=== PATIENT | male | born 1985 | race African-American/Black ===

== ENCOUNTER 2025-02-25 23:51 | Inpatient (IN) | payer MEDICAID ==
[~2025-02-25] VITALS: Ht 175.3 cm; Wt 74.8 kg
[2025-02-25 23:56] VITALS: O2SAT 100
[2025-02-26] MEDS: HYDROCODONE/ACETAMINOPHEN 5/325MG TABLET PO ONE (01:45)
[2025-02-26 04:04] LABS: HEMATOCRIT. 42.6 % (42.0-52.0); HEMOGLOBIN. 14.2 g/dL (14.0-18.0); MEAN PLATELET VOLUME 7.9 fl (7.4-10.4); PLATELET 207 x1000/uL (130-400); RED BLOOD CELL COUNT 4.49 mill/uL (4.7-6.1); RED CELL DISTRIBUTION WIDTH 13.1 % (11.6-14.6)
[2025-02-26] MEDS: ONDANSETRON HCL 4MG/2ML INJ IV ONE (04:07)
[2025-02-26] MEDS: MORPHINE SULFATE 4 MG/ML INJ (FOR IV/IM USE) IV ONE (04:08)
[2025-02-26 04:22] LABS: CREATININE 1.1 mg/dL (0.6-1.3); UREA NITROGEN BLOOD 10 mg/dL (9-23)
[2025-02-26 04:24] LABS: ASPARTATE AMINOTRANSFERASE 23 IU/L (<34); BILIRUBIN DIRECT 0.1 mg/dL (<=3.0); BILIRUBIN TOTAL 0.4 mg/dL (0.1-1.0)
[2025-02-26 04:25] LABS: PROTEIN TOTAL 6.6 g/dL (6.0-8.3)
[2025-02-26 05:06] LABS: EOSINOPHILS % MANUAL 1.0 % (0.0-5.0); LYMPHOCYTES % MANUAL 2.0 % (20.0-50.0); MONOCYTES % MANUAL 1.0 % (2.0-8.0); NEUTROPHILS % MANUAL 96.0 % (45.0-75.0)
[2025-02-26 05:07] LABS: PLATELET ESTIMATE NORMAL
[2025-02-26 05:37] LABS: INR 1.0
[2025-02-26] MEDS ORDERED: ONDANSETRON HCL 4MG/2ML INJ IV PRN ×3 (06:00→13:00)
[2025-02-26] MEDS ORDERED: DEXTROSE 50% WATER 50ML SYRINGE IV PRN (06:00)
[2025-02-26] MEDS ORDERED: HYDROCODONE/ACETAMINOPHEN 5/325MG TABLET PO PRN (06:00)
[2025-02-26] MEDS ORDERED: ACETAMINOPHEN 325MG TABLET PO PRN ×2 (06:00)
[2025-02-26] MEDS ORDERED: CLONIDINE 0.1MG TABLET PO PRN (06:00)
[2025-02-26] MEDS ORDERED: IPRATROPIUM/ALBUTEROL 0.5-3(2.5)MG/3ML NEB HHN PRN (06:00)
[2025-02-26] MEDS ORDERED: NALOXONE HCL 0.4MG/ML VIAL IV PRN (06:00)
[2025-02-26] MEDS ORDERED: TRAMADOL 50MG TABLET PO PRN (06:00)
[2025-02-26 08:00] VITALS: BP 101/69; PULSE 57; RESP 16; TEMP 37.3; O2SAT 100
[2025-02-26] MEDS: FAMOTIDINE 20MG/2ML VIAL IV SCH (09:51)
[2025-02-26 10:00] VITALS: BP 102/54; PULSE 60; RESP 14; TEMP 36.8072
[2025-02-26] MEDS ORDERED: VANCOMYCIN HCL 1GM VIAL ONE (11:35)
[2025-02-26] MEDS ORDERED: LIDOCAINE HCL/EPINEPHRINE 1%-EPI 1:100,000 20ML VIAL ONE (11:35)
[2025-02-26] MEDS ORDERED: FAMOTIDINE 20MG/2ML VIAL IV ONE (11:51)
[2025-02-26] MEDS ORDERED: HYDROMORPHONE HCL/PF 2MG/ML INJ IV PRN (12:00)
[2025-02-26] MEDS: BLOOD SUGAR DIAGNOSTIC STRIP TEST SCH (12:00)
[2025-02-26] MEDS ORDERED: HYDROMORPHONE HCL/PF 1MG/ML INJ IV PRN (13:00)
[2025-02-26] MEDS ORDERED: MEPERIDINE HCL/PF 25MG/ML CPJ IV PRN (13:00)
[2025-02-26] MEDS ORDERED: HYDRALAZINE 20MG/ML VIAL IV PRN ×2 (13:00)
[2025-02-26] MEDS ORDERED: LABETALOL 5MG/ML 4ML INJ IV PRN (13:00)
[2025-02-26] MEDS ORDERED: ACETAMINOPHEN 1,000MG/100ML PREMIX IV PRN (13:00)
[2025-02-26] MEDS ORDERED: FAMOTIDINE 20MG/2ML VIAL IV PRN (13:00)
[2025-02-26 13:42] LABS: *AMPHETAMINES SCREEN URINE PRESUMPTIVE POSITIVE (NEGATIVE)
[2025-02-26 13:43] LABS: *BARBITURATES SCREEN URINE NEGATIVE (NEGATIVE); *BENZODIAZEPINES SCREEN URINE NEGATIVE (NEGATIVE); *COCAINE SCREEN URINE NEGATIVE (NEGATIVE); CANNABINOID URINE SCREEN PRESUMPTIVE POSITIVE (NEGATIVE); ECSTASY MDMA SCREEN URINE NEGATIVE (NEGATIVE); METHADONE URINE SCREEN NEGATIVE (NEGATIVE); OPIATES URINE SCREEN PRESUMPTIVE POSITIVE (NEGATIVE); PHENCYCLIDINE URINE SCREEN NEGATIVE (NEGATIVE)
[2025-02-26 16:00] VITALS: BP 104/66; PULSE 60; RESP 18; TEMP 37.3; O2SAT 100
[2025-02-26] MEDS: HYDROCODONE/ACETAMINOPHEN 5/325MG TABLET PO PRN (16:18)
[2025-02-26 20:00] VITALS: BP 129/67; PULSE 78; RESP 18; TEMP 37.1; O2SAT 95
[2025-02-26] MEDS: CEFAZOLIN 1000MG PREMIX 50 ML IV SCH (21:39)
[2025-02-27] VITALS: BP 103/67; PULSE 86; RESP 18; TEMP 36.9; O2SAT 97
[2025-02-27 04:00] VITALS: BP 112/34; PULSE 60; RESP 18; TEMP 36.9; O2SAT 100
[2025-02-27 05:17] LABS: BASOPHILS % 0.3 % (0.0-2.0); EOSINOPHILS % 0.3 % (0.0-5.0); HEMATOCRIT. 39.3 % (42.0-52.0); HEMOGLOBIN. 13.2 g/dL (14.0-18.0); LYMPHOCYTES % 13.1 % (20.0-50.0); MEAN PLATELET VOLUME 7.7 fl (7.4-10.4); MONOCYTES % 7.9 % (2.0-8.0); NEUTROPHILS % 78.4 % (40.0-76.0); PLATELET 188 x1000/uL (130-400); RED BLOOD CELL COUNT 4.19 mill/uL (4.7-6.1); RED CELL DISTRIBUTION WIDTH 13.2 % (11.6-14.6)
[2025-02-27 05:35] LABS: CREATININE 0.8 mg/dL (0.6-1.3)
[2025-02-27 05:36] LABS: TRIGLYCERIDE 75 mg/dL (0-150); UREA NITROGEN BLOOD 7 mg/dL (9-23)
[2025-02-27 05:37] LABS: LDL CHOLESTEROL 58 mg/dL (5-100)
[2025-02-27 05:38] LABS: ASPARTATE AMINOTRANSFERASE 21 IU/L (<34); BILIRUBIN DIRECT 0.2 mg/dL (<=3.0); BILIRUBIN TOTAL 0.7 mg/dL (0.1-1.0); PROTEIN TOTAL 6.3 g/dL (6.0-8.3); T4 FREE 1.41 ng/dL (0.89-1.76)
[2025-02-27 06:32] LABS: HEPATITIS C AB NON REACTIVE (Neg) (Negative)
[2025-02-27 08:00] VITALS: BP 123/72; PULSE 78; RESP 18; TEMP 37.1; O2SAT 100
[2025-02-27] MEDS: ENOXAPARIN 40MG/0.4ML SYR SUBCUT SCH (09:20)
[2025-02-27 12:00] VITALS: BP 125/85; PULSE 54; RESP 18; TEMP 37.4; O2SAT 100
[2025-02-27 16:00] VITALS: BP 127/87; PULSE 60; RESP 18; TEMP 37.2; O2SAT 100
[2025-02-27 20:00] VITALS: BP 107/75; PULSE 80; RESP 18; TEMP 37.1; O2SAT 99
[2025-02-28] VITALS: BP 115/78; PULSE 71; RESP 15; TEMP 36.7; O2SAT 99
[2025-02-28 04:00] VITALS: BP 111/72; PULSE 71; RESP 15; TEMP 36.7; O2SAT 99
[2025-02-28 08:00] VITALS: BP 107/74; PULSE 66; RESP 16; TEMP 36.7; O2SAT 98
[2025-02-28 08:44] LABS: BASOPHILS % 0.5 % (0.0-2.0); EOSINOPHILS % 1.1 % (0.0-5.0); HEMATOCRIT. 38.7 % (42.0-52.0); HEMOGLOBIN. 12.9 g/dL (14.0-18.0); LYMPHOCYTES % 15.5 % (20.0-50.0); MEAN PLATELET VOLUME 8.1 fl (7.4-10.4); MONOCYTES % 9.2 % (2.0-8.0); NEUTROPHILS % 73.7 % (40.0-76.0); PLATELET 197 x1000/uL (130-400); RED BLOOD CELL COUNT 4.10 mill/uL (4.7-6.1); RED CELL DISTRIBUTION WIDTH 13.0 % (11.6-14.6)
[2025-02-28 09:08] LABS: CREATININE 0.9 mg/dL (0.6-1.3)
[2025-02-28 09:09] LABS: UREA NITROGEN BLOOD 9 mg/dL (9-23)
[2025-02-28 09:11] LABS: PHOSPHORUS 3.5 mg/dL (2.5-4.9)
[2025-02-28] MEDS ORDERED: IBUP-1455 PO (11:08)
[2025-02-28 12:00] VITALS: BP 121/78; PULSE 74; RESP 19; TEMP 36.3; O2SAT 100
[2025-02-28 16:00] VITALS: BP 95/65; PULSE 109; RESP 20; TEMP 36.4; O2SAT 100
[2025-02-28 20:00] VITALS: BP 111/70; PULSE 93; RESP 18; TEMP 36.3; O2SAT 100
[2025-02-28] MEDS: HYDROCODONE/ACETAMINOPHEN 5/325MG TABLET PO PRN (20:02)
[2025-02-28] MEDS: GUAIFENESIN 200MG/10ML SUGAR FREE UDC PO PRN (21:11)
[2025-03-01] VITALS: BP 119/64; PULSE 98; RESP 16; O2SAT 100
[2025-03-01 06:46] LABS: BASOPHILS % 1.0 % (0.0-2.0); EOSINOPHILS % 2.8 % (0.0-5.0); HEMATOCRIT. 36.5 % (42.0-52.0); HEMOGLOBIN. 12.3 g/dL (14.0-18.0); LYMPHOCYTES % 19.1 % (20.0-50.0); MEAN PLATELET VOLUME 8.0 fl (7.4-10.4); MONOCYTES % 9.6 % (2.0-8.0); NEUTROPHILS % 67.5 % (40.0-76.0); PLATELET 198 x1000/uL (130-400); RED BLOOD CELL COUNT 3.88 mill/uL (4.7-6.1); RED CELL DISTRIBUTION WIDTH 13.2 % (11.6-14.6)
[2025-03-01 08:00] VITALS: BP 114/69; PULSE 83; RESP 18; TEMP 36.9; O2SAT 99
[2025-03-01 12:00] VITALS: BP 111/63; PULSE 86; RESP 18; TEMP 37.1; O2SAT 99
[2025-03-01 12:33] VITALS: BP 111/63; PULSE 86; RESP 18; TEMP 98.8
[2025-03-01 16:00] VITALS: BP 105/42; PULSE 83; RESP 18; TEMP 37.1; O2SAT 100
== END 2025-03-01 18:47 | disposition home or self-care (01) | DRG 308 ==
LOC: ER 23:51 → 8EST 02-26 05:03 → EDBEDREQ 02-26 05:39 → EDBEDREQTM 02-26 05:39 → ENRESERV 02-26 05:55
PROVIDERS: ADMIT Internal Medicine; ATTEND Internal Medicine
PROC: 0QS734Z Reposition Left Upper Femur with Internal Fixation Device, Percutaneous Approach (ICD-10-PCS; principal; 2025-02-26)
DX: S72.142A Displaced intertrochanteric fracture of left femur, initial encounter for closed fracture (principal); Z59.00 Homelessness unspecified; W18.39XA Other fall on same level, initial encounter; Y93.89 Activity, other specified; Y92.89 Other specified places as the place of occurrence of the external cause; Y99.8 Other external cause status; Y08.89XA Assault by other specified means, initial encounter
CPT/HCPCS: 36415; 72192; 73502; 73503; 73552; 76000; 80048; 80061; 80076; 80305; 82306; 82962; 83036; 83735; 84100; 84439; 84443; 85025; 86705; 86850; 86900; 87340; 93005; 93970; 96374; 96375; 97110; 97116; 97162; 97166; 97530; 99285; A4606; J0690; J1308; J1650; J2004; J2270; J2405; J3373; J7030; A4217; C1713